=== PATIENT | female | born 2000 | race Caucasian/White ===

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

== ENCOUNTER 2021-01-25 00:22 | Emergency (ER) | payer BC ==
[2021-01-25] MEDS ORDERED: KETOROLAC TROMETHAMINE 60 MG/2 ML VIAL IM ONE (00:28)
[2021-01-25] MEDS ORDERED: AZITHROMYCIN 250 MG TABLET PO ONE (00:28)
[2021-01-25 00:29] VITALS: BP 127/75; PULSE 83; TEMP 98.9; BMI 24.0
[2021-01-25] MEDS ORDERED: AZITHROMYCIN 250 MG TABLET ONE (00:30)
[2021-01-25] MEDS ORDERED: KETOROLAC TROMETHAMINE 60 MG/2 ML VIAL ONE (00:30)
== END 2021-01-25 00:40 | disposition home or self-care (01) ==
LOC: FER 00:22
PROC: 3E0233Z Introduction of Anti-inflammatory into Muscle, Percutaneous Approach (ICD-10-PCS; principal; 2021-01-25)
DX: H60.311 Diffuse otitis externa, right ear (principal); H66.91 Otitis media, unspecified, right ear
CPT/HCPCS: 99284-25

== ENCOUNTER 2022-10-27 21:57 | Emergency (ER) | payer BC, OTHER ==
[2022-10-27] MEDS ORDERED: ACETAMINOPHEN 325 MG TABLET (FP) PO ONE (22:00)
[2022-10-27] MEDS ORDERED: ACETAMINOPHEN 325 MG TABLET (FP) ONE (22:05)
[2022-10-27 22:37] VITALS: BP 111/67; PULSE 83; RESP 16; TEMP 98.7; BMI 29.2
== END 2022-10-27 23:52 | disposition home or self-care (01) ==
LOC: FER 21:57
DX: S06.0X0A Concussion without loss of consciousness, initial encounter (principal); V47.6XXA Car passenger injured in collision with fixed or stationary object in traffic accident, initial encounter
CPT/HCPCS: 70450-TC; 81025; 99284-25

== ENCOUNTER 2022-11-27 05:04 | Day surgery (SDC) | payer BC, OTHER ==
[2022-11-26 11:00] VITALS: BMI 23.8
[2022-11-27 12:20] VITALS: RESP 18
[2022-11-27 14:40] VITALS: BP 105/61; PULSE 59
[2022-11-27 15:43] VITALS: TEMP 98
== END 2022-11-27 13:40 | disposition home or self-care (01) ==
LOC: JASU-ENDO 05:04
PROVIDERS: ATTEND Student in an Organized Health Care Education/Training Program
PROC: 0DB78ZX Excision of Stomach, Pylorus, Via Natural or Artificial Opening Endoscopic, Diagnostic (ICD-10-PCS; 2022-11-27)
PROC: 0DB68ZX Excision of Stomach, Via Natural or Artificial Opening Endoscopic, Diagnostic (ICD-10-PCS; 2022-11-27)
PROC: 0DB98ZX Excision of Duodenum, Via Natural or Artificial Opening Endoscopic, Diagnostic (ICD-10-PCS; principal; 2022-11-27 12:30)
DX: K29.50 Unspecified chronic gastritis without bleeding (principal)
CPT/HCPCS: 81025; 88305-TC; 88342-TC